=== PATIENT | male | born 1945 | race Caucasian/White ===

== ENCOUNTER → 2017-05-04 | Outpatient (CLI) | payer MEDICARE | END | disposition home or self-care (01) | LOC: CVU 09:29 | PROVIDERS: ATTEND Internal Medicine Cardiovascular Disease | DX: I25.10 Atherosclerotic heart disease of native coronary artery without angina pectoris (principal); I11.9 Hypertensive heart disease without heart failure; E78.5 Hyperlipidemia, unspecified; Z95.1 Presence of aortocoronary bypass graft; Z95.5 Presence of coronary angioplasty implant and graft | CPT/HCPCS: 93306 ==

== ENCOUNTER → 2018-03-03 | Outpatient (CLI) | payer MEDICARE, OTHER ==
[~2018-03-03] MED LIST: ASPI-496 PO; LOSA50TA6 PO; METO25TA35 PO; SIMV40TA3 PO; TAMS0.4C2 PO
[2018-03-03 14:42] LABS: MICROSCOPIC NOT IND
[2018-03-03 14:50] LABS: ALANINE AMINOTRANSFERASE 21 U/L (12-78); ANION GAP 4 mmol/L (5-15); CALCIUM 9.2 mg/dL (8.5-10.1); CHLORIDE 108 mmol/L (98-107)
[2018-03-03 14:53] LABS: ALKALINE PHOSPHATASE 68 U/L (45-117); BILIRUBIN,TOTAL 0.5 mg/dL (0.2-1.0); TOTAL PROTEIN 7.4 g/dL (6.4-8.2)
== END | disposition home or self-care (01) ==
LOC: STAR 13:12
PROVIDERS: ATTEND Urology
DX: Z01.818 Encounter for other preprocedural examination (principal); N20.9 Urinary calculus, unspecified
CPT/HCPCS: 36415; 80053; 81003; 87086; 93005

== ENCOUNTER 2018-03-15 05:35 | Day surgery (SDC) | payer MEDICARE, OTHER ==
[~2018-03-15] VITALS: Ht 180.3 cm; Wt 97.4 kg
[2018-03-15 06:04] VITALS: BP_DIAS 83
[2018-03-15] MEDS ORDERED: LACTATED RINGERS 1,000 ML IV SCH (06:05)
[2018-03-15 06:24] VITALS: BP_SYST 83
[2018-03-15] MEDS ORDERED: FENTANYL PF 100 MCG/2ML ONE (07:28)
[2018-03-15] MEDS ORDERED: MIDAZOLAM 1 MG/ML, 2ML ONE (07:28)
[2018-03-15] MEDS ORDERED: SCOPOLAMINE PATCH, 1.5MG PATCH.TD72 TD ONE (07:30)
[2018-03-15] MEDS ORDERED: OxyconTIN ER 10 MG TAB.ER PO ONE (07:30)
[2018-03-15] MEDS ORDERED: ACETAMINOPHEN 500 MG TABLET PO ONE (07:30)
[2018-03-15] MEDS ORDERED: ONDANSETRON ODT 8 MG PO ONE (07:30)
[2018-03-15] MEDS ORDERED: CEFAZOLIN 1,000 MG ONE (07:50)
[2018-03-15] MEDS ORDERED: EPHEDRINE 50 MG/ML, 1ML ONE (07:50)
[2018-03-15] MEDS ORDERED: ROCURONIUM 10MG/ML,5ML ONE (08:20)
[2018-03-15] MEDS ORDERED: SUCCINYLCHOLINE 20 MG/ML, 10ML ONE (08:20)
[2018-03-15] MEDS ORDERED: PROPOFOL 10 MG/ML, 20ML ONE (08:20)
[2018-03-15] MEDS ORDERED: DEXAMETHASONE 4 MG/ML, 1ML ONE ×2 (08:21)
[2018-03-15] MEDS ORDERED: FUROSEMIDE 20 MG/2 ML ONE (09:22)
[2018-03-15] MEDS ORDERED: MEPERIDINE/PF 25MG/0.5ML IVPush PRN (09:30)
[2018-03-15] MEDS ORDERED: PROMETHAZINE 25 MG/ML, 1ML IV PRN (09:30)
[2018-03-15] MEDS ORDERED: LABETALOL 5MG/ML, 20ML IV PRN (09:30)
[2018-03-15] MEDS ORDERED: hydrALAzine 20 MG/ML, 1ML IV PRN (09:30)
[2018-03-15] MEDS ORDERED: OXYcodone 5 MG/5 ML ORAL.SOL UDC PO PRN (09:30)
[2018-03-15] MEDS ORDERED: FENTANYL PF 100 MCG/2ML IV PRN (09:30)
[2018-03-15] MEDS ORDERED: ALBUTEROL SULFATE 2.5 MG/3 ML NPPB PRN (09:30)
[2018-03-15] MEDS ORDERED: PROMETHAZINE 12.5 MG SUPP PR PRN (09:30)
[2018-03-15] MEDS ORDERED: ONDANSETRON ODT 8 MG PO PRN (09:30)
[2018-03-15] MEDS ORDERED: MIDAZOLAM 1 MG/ML, 2ML IV PRN (09:30)
[2018-03-15] MEDS ORDERED: MORPHINE SULFATE 4 MG/ML, 1ML IVPush PRN (09:30)
== END 2018-03-15 11:45 ==
LOC: OUT 05:35
PROVIDERS: ATTEND Urology
DX: N20.1 Calculus of ureter (principal); I25.10 Atherosclerotic heart disease of native coronary artery without angina pectoris; E78.5 Hyperlipidemia, unspecified; I48.91 Unspecified atrial fibrillation; I10 Essential (primary) hypertension; Z72.89 Other problems related to lifestyle; Z87.891 Personal history of nicotine dependence; Z79.82 Long term (current) use of aspirin; Z88.1 Allergy status to other antibiotic agents; Z88.8 Allergy status to other drugs, medicaments and biological substances
CPT/HCPCS: 50590; J0330; J0690; J1100; J1940; J2250; J2704; J3010; J7120; Q0162

== ENCOUNTER → 2018-03-30 | Outpatient (CLI) | payer MEDICARE, OTHER | END | disposition home or self-care (01) | LOC: CFH 11:04 | PROVIDERS: ATTEND Urology | DX: N20.0 Calculus of kidney (principal) | CPT/HCPCS: 74018 ==

== ENCOUNTER 2018-10-11 14:00 | Day surgery (SDC) | payer MEDICARE, OTHER ==
[2018-10-09 14:13] VITALS: BP 139/86
[2018-10-09 14:55] LABS: ALANINE AMINOTRANSFERASE 24 U/L (12-78); ALBUMIN 3.8 g/dL (3.4-5.0); ANION GAP 6 mmol/L (5-15); CHLORIDE 108 mmol/L (98-107); CREATININE 1.11 mg/dL (0.7-1.3)
[2018-10-09 14:57] LABS: ALKALINE PHOSPHATASE 74 U/L (45-117); BILIRUBIN,TOTAL 0.4 mg/dL (0.2-1.0); TOTAL PROTEIN 7.2 g/dL (6.4-8.2)
[~2018-10-11] VITALS: Ht 180.3 cm; Wt 99.5 kg
[~2018-10-11 14:00] MED LIST changes: -LOSA50TA6 PO; +LOSA50TA7 PO; +OMEG-172 PO
[2018-10-11] MEDS: LACTATED RINGERS 1,000 ML IV SCH ×2 (14:43→14:44)
[2018-10-11] MEDS ORDERED: FENTANYL PF 100 MCG/2ML ONE (15:07)
[2018-10-11] MEDS ORDERED: ONDANSETRON 2MG/ML, 2ML ONE (15:40)
[2018-10-11] MEDS ORDERED: PROPOFOL 10 MG/ML, 20ML ONE (15:40)
[2018-10-11] MEDS ORDERED: DEXAMETHASONE 4 MG/ML, 1ML ONE (15:40)
[2018-10-11] MEDS ORDERED: ACETAMINOPHEN 650 MG/20.3 ML UDC ONE (16:54)
[2018-10-11] MEDS ORDERED: OXYcodone 5 MG/5 ML ORAL.SOL UDC ONE (16:54)
[2018-10-11] MEDS ORDERED: DIAZEPAM 5 MG/ML, 2ML IVPush PRN (17:00)
[2018-10-11] MEDS ORDERED: hydrALAzine 20 MG/ML, 1ML IV PRN (17:00)
[2018-10-11] MEDS ORDERED: FENTANYL PF 100 MCG/2ML IV PRN (17:00)
[2018-10-11] MEDS ORDERED: OXYcodone 5 MG/5 ML ORAL.SOL UDC PO PRN (17:00)
[2018-10-11] MEDS ORDERED: HYDROmorphone 2 MG/ML, 1ML IVPush PRN (17:00)
[2018-10-11] MEDS ORDERED: KETOROLAC 30 MG/1 ML IV PRN (17:00)
[2018-10-11] MEDS ORDERED: PROMETHAZINE 25 MG/ML, 1ML IV PRN (17:00)
[2018-10-11] MEDS ORDERED: ACETAMINOPHEN 325 MG TABLET PO PRN (17:00)
[2018-10-11] MEDS ORDERED: MEPERIDINE/PF 25MG/0.5ML IVPush PRN (17:00)
[2018-10-11] MEDS ORDERED: KETOROLAC 30 MG/1 ML ONE (17:00)
[2018-10-11] MEDS ORDERED: LABETALOL 5MG/ML, 20ML IV PRN (17:00)
[2018-10-11] MEDS ORDERED: ALBUTEROL SULFATE 2.5 MG/3 ML NPPB PRN (17:00)
[2018-10-11] MEDS ORDERED: MEPERIDINE/PF 25MG/0.5ML ONE (17:01)
== END 2018-10-11 18:50 | disposition home or self-care (01) ==
LOC: OR 14:00
PROVIDERS: ATTEND Urology
DX: N20.1 Calculus of ureter (principal); N13.5 Crossing vessel and stricture of ureter without hydronephrosis; Z72.89 Other problems related to lifestyle; Z87.891 Personal history of nicotine dependence; I25.10 Atherosclerotic heart disease of native coronary artery without angina pectoris; Z95.1 Presence of aortocoronary bypass graft; Z98.890 Other specified postprocedural states; Z88.8 Allergy status to other drugs, medicaments and biological substances; Z79.82 Long term (current) use of aspirin
CPT/HCPCS: 36415; 52341; 52356; 74420; 80053; 93005; J1100; J1885; J2175; J2405; J2704; J3010; J7120; 82360; 88300; C1726; C1758; C1769; C2617